=== PATIENT | male | born 1975 | race Caucasian/White ===

== ENCOUNTER 2025-02-22 13:11 | Emergency (ER) | payer MEDICARE, BC ==
[~2025-02-22] VITALS: Ht 170.2 cm; Wt 82.3 kg
[2025-02-22 13:30] VITALS: BP 148/67; PULSE 57; RESP 16; TEMP 98.3; O2SAT 99
[2025-02-22 14:03] LABS: MEAN PLATELET VOLUME 8.9 FL (7.4-10.4); RED CELL DISTRIBUTION WIDTH 13.9 % (11.5-14.5)
[2025-02-22 14:11] LABS: CREATININE 0.72 MG/DL (0.60-1.10); TOTAL CARBON DIOXIDE 28.4 MMOL/L (24-32); eCRCL 117 ML/MIN; eGFR > 90 ML/MIN
--- NOTE | 2025-02-22 14:20 | Physician Documentation ---
History of Present Illness ~ General Chief Complaint: Abnormal Lab(s) Stated Complaint: ABNORMAL LABS Time Seen by MD: 14:18 History of Present Illness Initial Comments This is a 49-year-old male with psychiatric history who presents to the ER accompanied by his mother. They report being told to present to the ER due to an abnormal potassium, however this result is from November of this year. On questioning, the patient denies any symptoms or concerns. His mother does notice that he urinates frequently, but she has not noted any recent vomiting, nausea, fever, chills. Medication Reconciliation Allergies: Coded Allergies: No Known Allergies (Unverified , 02/22/25) Review of Systems ROS As stated above in the HPI, otherwise all systems are reviewed and negative. Physical Exam Physical Exam Vital Signs: Temperature: 98.3, Source: Oral, Heart Rate: 57, Respiratory Rate: 16, BP: 148/67, Pulse Oximetry: 99, Weight: 82.300 Oxygen Flow Rate: 0 Physical Exam General: Alert, no apparent distress. HEENT: PERRL, EOMI, no injection, moist mucous membranes. Neck: Full range of motion. Respiratory: Lungs clear, no respiratory distress. Chest: No accessory muscle use. Cardiovascular: Regular rate and rhythm, no murmurs. Gastrointestinal: Soft, nontender, nondistended. Bowels sounds present. Extremities: Normal range of motion, no deformity. Neurologic: Oriented x4. Psychiatric: Normal mood and affect. Skin: Normal color, warm and dry. No edema, no ecchymosis. Progress Results/Orders Results/Orders Completed Orders - M[employer]NA[employer] Ua W/Microscopic, Cult If Ind (02/22/25 14:56) Vital Signs 02/22/25 13:30 Temp 98.3 Pulse 57 Resp 16 B/P (MAP) 148/67 Pulse Ox 99 O2 Flow Rate 0 Laboratory Tests Test 02/22/25 13:55 02/22/25 14:56 White Blood Count 5.6 Red Blood Count 4.54 L Hemoglobin 13.4 L Hematocrit 39.3 L Mean Corpuscular Volume 86.5 Mean Corpuscular Hemoglobin 29.6 Mean Corpuscular Hemoglobin Concent 34.2 Red Cell Distribution Width 13.9 Platelet Count 219 Mean Platelet Volume 8.9 Neutrophils (%) (Auto) 70.7 Lymphocytes (%) (Auto) 23.4 Monocytes (%) (Auto) 4.7 Eosinophils (%) (Auto) 1.0 Basophils (%) (Auto) 0.2 Neutrophils # (Auto) 4.0 Lymphocytes # (Auto) 1.3 Monocytes # (Auto) 0.3 Eosinophils # (Auto) 0.1 Basophils # (Auto) 0.0 CBC Comment Sodium Level 133 L Potassium Level 4.0 Chloride Level 97 L Carbon Dioxide Level 28.4 Anion Gap 8 Blood Urea Nitrogen 11 Creatinine 0.72 Estimated GFR/1.73 m2 > 90 BUN/Creatinine Ratio 15.3 Glucose Level 160 H Calcium Level 8.7 Albumin 4.4 Chemistry Comments Urine Specimen Description Cln catch midstream Urine Color Yellow Urine Clarity Clear Urine pH 6.0 Urine Specific [place] 1.025 Urine Protein Trace Urine Glucose (UA) 100 H Urine Ketones Negative Urine Occult Blood Negative Urine Nitrite Negative Urine Bilirubin Negative Urine Urobilinogen 0.2 Urine Leukocyte Esterase Negative Urine RBC 0-2 Urine WBC 0-4 Urine Squamous Epithelial Cells None seen Urine Bacteria 1+ Urine Mucus Few Urine Culture Indicated Not ind Volume Urine Centrifuged 10 ml Urine Comment Medical Decision Making Additional information obtaine: family, site lead Findings No previous visits to this hospital. Differential Diagnosis Well appearing with no acute concerns other than urinary frequency. UA obtained with no evidence of infection. patient to f/u with PCP, mom comfortable with this plan. Departure Time of Disposition: 14:19 Impression: Primary Impression: patient concern about lab work Additional Impression: Urinary frequency Condition: Stable Discharge Instructions: Medical Screening Exam, Urinary Frequency, Adult Additional Instructions: Normal labs today. No elevated potassium or other concerns. Urine did not show infection. Referrals: NO PRIMARY CARE PROVIDER (PCP) Education Educated: Patient Educated regarding: diagnosis, treatment, prognosis, need for follow up Signature Scribe Signature: x Attestation: The note accurately reflects work and decisions made by me.Maddison Monique NP 02/22/25 14:39 MADDISON FIELD NP Feb 22, 2025 14:20
[2025-02-22 15:06] LABS: LEUKOCYTE ESTERASE ,URINE NEGATIVE (Neg); NITRITES, URINE NEGATIVE (Neg); OCCULT BLOOD,URINE NEGATIVE (Neg)
[2025-02-22 15:14] LABS: UA COLLECTION TYPE CLN CATCH MIDSTREAM
[2025-02-22 15:18] LABS: MUCUS STRANDS FEW /LPF (Neg); SQUAMOUS EPITHELIAL CELL,UR NONE SEEN /LPF (FEW)
== END 2025-02-22 15:32 | disposition home or self-care (01) ==
LOC: ER 13:12
DX: R35.0 Frequency of micturition (principal)
CPT/HCPCS: 36415; 80048; 81001; 85025; 99283